=== PATIENT | female | born 1995 | race Caucasian/White ===

== ENCOUNTER 2018-09-30 17:21 | Outpatient (CLI) | payer SELFPAY ==
[2018-09-30] MEDS ORDERED: 0.9 % SODIUM CHLORIDE 1,000 ML IV ONE (17:45)
[2018-09-30] MEDS ORDERED: SORB ONE (17:46)
[2018-09-30] MEDS ORDERED: [UNRECOGNIZED DRUG - OTHER] ONE (17:46)
== END 2018-09-30 17:23 ==
LOC: INF 17:21
PROVIDERS: ATTEND Nurse Practitioner Family
DX: E87.5 Hyperkalemia (principal)
CPT/HCPCS: 93005; 96365; J7030

== ENCOUNTER 2018-10-01 09:36 | Outpatient (CLI) | payer SELFPAY ==
[2018-10-01 10:19] LABS: eGFR (Non-African) > 60
== END 2018-10-01 09:38 ==
LOC: LAB 09:36
PROVIDERS: ATTEND Nurse Practitioner Family
DX: E87.5 Hyperkalemia (principal)
CPT/HCPCS: 36415; 80048

== ENCOUNTER 2018-10-03 09:12 | Outpatient (CLI) | payer SELFPAY ==
[2018-10-03 09:53] LABS: eGFR (Non-African) > 60
== END 2018-10-03 09:14 ==
LOC: LAB 09:12
PROVIDERS: ATTEND Nurse Practitioner Family
DX: Z51.81 Encounter for therapeutic drug level monitoring (principal)
CPT/HCPCS: 36415; 80048; 80178

== ENCOUNTER 2019-01-16 16:34 | Outpatient (CLI) | payer OTHER ==
[2019-01-16 16:45] LABS: APPEARANCE,URINE CLEAR (CLEAR); COLOR,URINE YELLOW (YELLOW)
[2019-01-16 16:46] LABS: OCCULT BLOOD,URINE 2+ (NEGATIVE); UROBILINOGEN URINE 0.2 Eu (0.2-1.0)
== END 2019-01-16 16:36 ==
LOC: LAB 16:34
PROVIDERS: ATTEND Nurse Practitioner
DX: R30.9 Painful micturition, unspecified (principal)
CPT/HCPCS: 81002